=== PATIENT | male | born 1975 | race Caucasian/White ===

== ENCOUNTER 2020-07-25 14:22 | Inpatient (IN) ==
[2020-07-25] MEDS ORDERED: *HR* Dextrose 50 % in Water (Vial) 50 ML VIAL IVP PRN (18:54)
[2020-07-25] MEDS ORDERED: Dextrose Gel 15 GM/37.5 ML TUBE PO PRN ×2 (18:54)
[2020-07-25] MEDS ORDERED: D5% in Water 1,000 ML IVC PRN (18:54)
[2020-07-25] MEDS: Insulin LISPRO 300 UNITS/3 ML VIAL SQ SCH (21:45)
[2020-07-26] MEDS: *HR* Enoxaparin 40 MG/0.4 ML SYRINGE SQ SCH (05:23)
[2020-07-26 05:38] LABS: Basophils % 0.4 %; Eosinophils # 0.1 K/mcL (0.0-0.6); Eosinophils % 1.1 %; Hematocrit 45.4 % (37.5-50.1); Hemoglobin 14.4 g/dL (12.9-16.9); Immature Granulocytes % 0.5 % (0-4); Lymphocytes # 1.8 K/mcL (0.6-4.6); Lymphocytes % 21.5 %; Mean Corpuscular HGB Conc 31.7 g/dL (31.6-35.5); Mean Corpuscular Volume 91.5 fL (83.0-100.0); Mean Platelet Volume 10.3 fL (9.4-12.4); Monocytes # 0.8 K/mcL (0.0-1.3); Monocytes % 9.4 %; Neutrophils # 5.7 K/mcL (1.6-8.9); Platelet Count 140 K/mcL (140-400); Red Blood Count 4.96 M/mcL (4.19-5.50); Red Cell Distribution Width 13.1 % (11.5-14.5); Segmented Neutrophils % 67.1 %; White Blood Count 8.5 K/mcL (4.3-11.1)
[2020-07-26 05:55] LABS: Alanine Aminotransferase 32 Units/L (7-52); Albumin 3.6 g/dL (3.5-5.7); Albumin/Globulin Ratio 1.2 (1.1-2.2); Alkaline Phosphatase 87 Units/L (34-104); Aspartate Amino Transferase 17 Units/L (13-39); BUN/Creatinine Ratio 23 (6-26); Bilirubin,Total 0.7 mg/dL (0.3-1.0); Blood Urea Nitrogen 19 mg/dL (6-20); Carbon Dioxide 25 mEq/L (23-29); Chloride 104 mEq/L (98-107); Globulin 3.1 g/dL (2.4-3.5); Glucose 172 mg/dL (70-105); Magnesium 2.4 mg/dL (1.6-2.6); Osmolality,Calculated 290 (280-300); Potassium 4.3 mEq/L (3.5-5.1); Sodium 137 mEq/L (136-145); Total Protein 6.7 g/dL (6.4-8.9); eGFR For African Americans > 60 (> 60); eGFR For Non-African Americans > 60 (> 60)
[2020-07-26] MEDS: Aspirin Enteric Coated 81 MG Tablet PO SCH (09:35)
[2020-07-26] MEDS: (Empagliflozin [Jardiance] 10 MG) PO SCH (09:36)
[2020-07-26] MEDS: *HR* Metformin 500 MG TABLET PO SCH (09:36)
[2020-07-26] MEDS: *HR* Glimepiride 2 MG TABLET PO SCH (09:36)
[2020-07-26] MEDS: lisinopriL 10 MG TABLET PO SCH (09:36)
[2020-07-26] MEDS: Multivit/Ca/Min/Fe/FA 1 TAB TABLET PO SCH (09:36)
[2020-07-26] MEDS: Insulin LISPRO 300 UNITS/3 ML VIAL SQ SCH ×4 (09:36→22:15)
[2020-07-26] MEDS: Folic Acid 1 MG TABLET PO SCH (09:36)
[2020-07-26] MEDS: (Alogliptin Benzoate [Alogliptin] 25 MG) PO SCH (09:36)
[2020-07-27] MEDS: *HR* Enoxaparin 40 MG/0.4 ML SYRINGE SQ SCH (05:48)
[2020-07-27] MEDS: Insulin LISPRO 300 UNITS/3 ML VIAL SQ SCH ×3 (07:54→16:32)
[2020-07-27] MEDS: Folic Acid 1 MG TABLET PO SCH (07:59)
[2020-07-27] MEDS: lisinopriL 10 MG TABLET PO SCH (07:59)
[2020-07-27] MEDS: *HR* Glimepiride 2 MG TABLET PO SCH (07:59)
[2020-07-27] MEDS: *HR* Metformin 500 MG TABLET PO SCH (07:59)
[2020-07-27] MEDS: Aspirin Enteric Coated 81 MG Tablet PO SCH (07:59)
[2020-07-27] MEDS: Multivit/Ca/Min/Fe/FA 1 TAB TABLET PO SCH (07:59)
[2020-07-27] MEDS: (Alogliptin Benzoate [Alogliptin] 25 MG) PO SCH (08:01)
[2020-07-27] MEDS: (Empagliflozin [Jardiance] 10 MG) PO SCH (08:01)
[2020-07-27] MEDS: 0.9 % Sodium Chloride 1,000 ML IVC SCH ×2 (16:20→21:28)
[2020-07-28] MEDS: Insulin LISPRO 300 UNITS/3 ML VIAL SQ SCH ×5 (02:46→23:32)
[2020-07-28] MEDS: *HR* Enoxaparin 40 MG/0.4 ML SYRINGE SQ SCH (05:15)
[2020-07-28 05:45] LABS: Basophils % 0.4 %; Eosinophils # 0.2 K/mcL (0.0-0.6); Eosinophils % 1.9 %; Hematocrit 40.7 % (37.5-50.1); Hemoglobin 13.1 g/dL (12.9-16.9); Immature Granulocytes % 0.4 % (0-4); Lymphocytes # 1.9 K/mcL (0.6-4.6); Mean Corpuscular HGB Conc 32.2 g/dL (31.6-35.5); Mean Corpuscular Hemoglobin 29.3 pg (28.0-33.3); Mean Corpuscular Volume 91.1 fL (83.0-100.0); Mean Platelet Volume 10.7 fL (9.4-12.4); Monocytes # 0.7 K/mcL (0.0-1.3); Neutrophils # 5.6 K/mcL (1.6-8.9); Platelet Count 128 K/mcL (140-400); Red Blood Count 4.47 M/mcL (4.19-5.50); Red Cell Distribution Width 13.2 % (11.5-14.5); Segmented Neutrophils % 66.3 %; White Blood Count 8.4 K/mcL (4.3-11.1)
[2020-07-28 05:59] LABS: BUN/Creatinine Ratio 31 (6-26); Blood Urea Nitrogen 28 mg/dL (6-20); Calcium 8.1 mg/dL (8.6-10.3); Carbon Dioxide 22 mEq/L (23-29); Chloride 113 mEq/L (98-107); Glucose 81 mg/dL (70-105); Osmolality,Calculated 293 (280-300); Potassium 4.3 mEq/L (3.5-5.1); Sodium 139 mEq/L (136-145); eGFR For African Americans > 60 (> 60); eGFR For Non-African Americans > 60 (> 60)
[2020-07-28] MEDS: Multivit/Ca/Min/Fe/FA 1 TAB TABLET PO SCH (08:13)
[2020-07-28] MEDS: *HR* Glimepiride 2 MG TABLET PO SCH (08:13)
[2020-07-28] MEDS: Aspirin Enteric Coated 81 MG Tablet PO SCH (08:13)
[2020-07-28] MEDS: Cholecalciferol (D-3) 1,000 UNIT (25MCG) TABLET PO SCH (08:13)
[2020-07-28] MEDS: Folic Acid 1 MG TABLET PO SCH (08:13)
[2020-07-28] MEDS: (Alogliptin Benzoate [Alogliptin] 25 MG) PO SCH (08:14)
[2020-07-28] MEDS: (Empagliflozin [Jardiance] 10 MG) PO SCH (08:14)
[2020-07-28] MEDS: 0.9 % Sodium Chloride 1,000 ML IVC SCH ×2 (08:14→13:28)
[2020-07-29] MEDS: *HR* Enoxaparin 40 MG/0.4 ML SYRINGE SQ SCH (05:10)
[2020-07-29 07:57] LABS: BUN/Creatinine Ratio 22 (6-26); Blood Urea Nitrogen 16 mg/dL (6-20); Calcium 8.6 mg/dL (8.6-10.3); Carbon Dioxide 24 mEq/L (23-29); Chloride 112 mEq/L (98-107); Glucose 89 mg/dL (70-105); Osmolality,Calculated 293 (280-300); Potassium 4.5 mEq/L (3.5-5.1); Sodium 141 mEq/L (136-145); eGFR For African Americans > 60 (> 60); eGFR For Non-African Americans > 60 (> 60)
[2020-07-29] MEDS: Insulin LISPRO 300 UNITS/3 ML VIAL SQ SCH ×4 (09:17→21:31)
[2020-07-29] MEDS: Cholecalciferol (D-3) 1,000 UNIT (25MCG) TABLET PO SCH (09:23)
[2020-07-29] MEDS: Folic Acid 1 MG TABLET PO SCH (09:24)
[2020-07-29] MEDS: Aspirin Enteric Coated 81 MG Tablet PO SCH (09:24)
[2020-07-29] MEDS: *HR* Glimepiride 2 MG TABLET PO SCH (09:24)
[2020-07-29] MEDS: (Empagliflozin [Jardiance] 10 MG) PO SCH (09:24)
[2020-07-29] MEDS: Multivit/Ca/Min/Fe/FA 1 TAB TABLET PO SCH (09:24)
[2020-07-29] MEDS: (Alogliptin Benzoate [Alogliptin] 25 MG) PO SCH (13:44)
[2020-07-30] MEDS: *HR* Enoxaparin 40 MG/0.4 ML SYRINGE SQ SCH (05:58)
[2020-07-30] MEDS: Insulin LISPRO 300 UNITS/3 ML VIAL SQ SCH ×4 (08:14→19:49)
[2020-07-30] MEDS: Folic Acid 1 MG TABLET PO SCH (08:18)
[2020-07-30] MEDS: Aspirin Enteric Coated 81 MG Tablet PO SCH (08:18)
[2020-07-30] MEDS: Multivit/Ca/Min/Fe/FA 1 TAB TABLET PO SCH (08:18)
[2020-07-30] MEDS: (Empagliflozin [Jardiance] 10 MG) PO SCH (08:18)
[2020-07-30] MEDS: *HR* Glimepiride 2 MG TABLET PO SCH (08:18)
[2020-07-30] MEDS: Cholecalciferol (D-3) 1,000 UNIT (25MCG) TABLET PO SCH (08:18)
[2020-07-30] MEDS: (Alogliptin Benzoate [Alogliptin] 25 MG) PO SCH (08:19)
[2020-07-31] MEDS: *HR* Enoxaparin 40 MG/0.4 ML SYRINGE SQ SCH (04:46)
[2020-07-31] MEDS: Insulin LISPRO 300 UNITS/3 ML VIAL SQ SCH ×4 (08:04→19:50)
[2020-07-31] MEDS: Multivit/Ca/Min/Fe/FA 1 TAB TABLET PO SCH (08:56)
[2020-07-31] MEDS: Folic Acid 1 MG TABLET PO SCH (08:56)
[2020-07-31] MEDS: Cholecalciferol (D-3) 1,000 UNIT (25MCG) TABLET PO SCH (08:56)
[2020-07-31] MEDS: *HR* Glimepiride 2 MG TABLET PO SCH (08:56)
[2020-07-31] MEDS: Aspirin Enteric Coated 81 MG Tablet PO SCH (08:56)
[2020-07-31] MEDS: (Empagliflozin [Jardiance] 10 MG) PO SCH (08:58)
[2020-07-31] MEDS: (Alogliptin Benzoate [Alogliptin] 25 MG) PO SCH (08:59)
[2020-08-01] MEDS: *HR* Enoxaparin 40 MG/0.4 ML SYRINGE SQ SCH (07:10)
[2020-08-01] MEDS: Insulin LISPRO 300 UNITS/3 ML VIAL SQ SCH ×4 (09:08→20:43)
[2020-08-01] MEDS: (Empagliflozin [Jardiance] 10 MG) PO SCH (09:12)
[2020-08-01] MEDS: Folic Acid 1 MG TABLET PO SCH (09:12)
[2020-08-01] MEDS: (Alogliptin Benzoate [Alogliptin] 25 MG) PO SCH (09:12)
[2020-08-01] MEDS: *HR* Glimepiride 2 MG TABLET PO SCH (09:12)
[2020-08-01] MEDS: Multivit/Ca/Min/Fe/FA 1 TAB TABLET PO SCH (09:12)
[2020-08-01] MEDS: Aspirin Enteric Coated 81 MG Tablet PO SCH (09:12)
[2020-08-01] MEDS: Cholecalciferol (D-3) 1,000 UNIT (25MCG) TABLET PO SCH (09:12)
[2020-08-02] MEDS: *HR* Enoxaparin 40 MG/0.4 ML SYRINGE SQ SCH (05:45)
[2020-08-02] MEDS: Insulin LISPRO 300 UNITS/3 ML VIAL SQ SCH ×4 (08:49→21:46)
[2020-08-02] MEDS: Cholecalciferol (D-3) 1,000 UNIT (25MCG) TABLET PO SCH (08:49)
[2020-08-02] MEDS: *HR* Glimepiride 2 MG TABLET PO SCH (08:49)
[2020-08-02] MEDS: Aspirin Enteric Coated 81 MG Tablet PO SCH (08:49)
[2020-08-02] MEDS: (Alogliptin Benzoate [Alogliptin] 25 MG) PO SCH (08:50)
[2020-08-02] MEDS: Multivit/Ca/Min/Fe/FA 1 TAB TABLET PO SCH (08:50)
[2020-08-02] MEDS: Folic Acid 1 MG TABLET PO SCH (08:50)
[2020-08-02] MEDS: (Empagliflozin [Jardiance] 10 MG) PO SCH (08:50)
[2020-08-03] MEDS: *HR* Enoxaparin 40 MG/0.4 ML SYRINGE SQ SCH (05:25)
[2020-08-03] MEDS: Multivit/Ca/Min/Fe/FA 1 TAB TABLET PO SCH (08:35)
[2020-08-03] MEDS: Aspirin Enteric Coated 81 MG Tablet PO SCH (08:35)
[2020-08-03] MEDS: Folic Acid 1 MG TABLET PO SCH (08:35)
[2020-08-03] MEDS: *HR* Glimepiride 2 MG TABLET PO SCH (08:35)
[2020-08-03] MEDS: Cholecalciferol (D-3) 1,000 UNIT (25MCG) TABLET PO SCH (08:35)
[2020-08-03] MEDS: Insulin LISPRO 300 UNITS/3 ML VIAL SQ SCH ×4 (08:35→20:35)
[2020-08-03] MEDS: (Empagliflozin [Jardiance] 10 MG) PO SCH (08:36)
[2020-08-03] MEDS: (Alogliptin Benzoate [Alogliptin] 25 MG) PO SCH (08:36)
[2020-08-04] MEDS: *HR* Enoxaparin 40 MG/0.4 ML SYRINGE SQ SCH (05:34)
[2020-08-04] MEDS: Aspirin Enteric Coated 81 MG Tablet PO SCH (08:33)
[2020-08-04] MEDS: *HR* Glimepiride 2 MG TABLET PO SCH (08:33)
[2020-08-04] MEDS: Insulin LISPRO 300 UNITS/3 ML VIAL SQ SCH ×4 (08:33→20:44)
[2020-08-04] MEDS: (Alogliptin Benzoate [Alogliptin] 25 MG) PO SCH (08:33)
[2020-08-04] MEDS: Folic Acid 1 MG TABLET PO SCH (08:33)
[2020-08-04] MEDS: (Empagliflozin [Jardiance] 10 MG) PO SCH (08:33)
[2020-08-04] MEDS: Cholecalciferol (D-3) 1,000 UNIT (25MCG) TABLET PO SCH (08:33)
[2020-08-04] MEDS: Multivit/Ca/Min/Fe/FA 1 TAB TABLET PO SCH (08:33)
[2020-08-05] MEDS: *HR* Enoxaparin 40 MG/0.4 ML SYRINGE SQ SCH (04:01)
[2020-08-05] MEDS: Insulin LISPRO 300 UNITS/3 ML VIAL SQ SCH ×4 (08:00→21:07)
[2020-08-05] MEDS: Multivit/Ca/Min/Fe/FA 1 TAB TABLET PO SCH (08:08)
[2020-08-05] MEDS: Aspirin Enteric Coated 81 MG Tablet PO SCH (08:08)
[2020-08-05] MEDS: Folic Acid 1 MG TABLET PO SCH (08:08)
[2020-08-05] MEDS: *HR* Glimepiride 2 MG TABLET PO SCH (08:08)
[2020-08-05] MEDS: Cholecalciferol (D-3) 1,000 UNIT (25MCG) TABLET PO SCH (08:08)
[2020-08-05] MEDS: (Empagliflozin [Jardiance] 10 MG) PO SCH (08:10)
[2020-08-05] MEDS: (Alogliptin Benzoate [Alogliptin] 25 MG) PO SCH (08:10)
[2020-08-06] MEDS: *HR* Enoxaparin 40 MG/0.4 ML SYRINGE SQ SCH (05:45)
[2020-08-06] MEDS: Aspirin Enteric Coated 81 MG Tablet PO SCH (08:30)
[2020-08-06] MEDS: Multivit/Ca/Min/Fe/FA 1 TAB TABLET PO SCH (08:30)
[2020-08-06] MEDS: Cholecalciferol (D-3) 1,000 UNIT (25MCG) TABLET PO SCH (08:30)
[2020-08-06] MEDS: Folic Acid 1 MG TABLET PO SCH (08:30)
[2020-08-06] MEDS: (Empagliflozin [Jardiance] 10 MG) PO SCH (08:31)
[2020-08-06] MEDS: *HR* Glimepiride 2 MG TABLET PO SCH (08:31)
[2020-08-06] MEDS: Insulin LISPRO 300 UNITS/3 ML VIAL SQ SCH ×4 (08:31→20:30)
[2020-08-06] MEDS: (Alogliptin Benzoate [Alogliptin] 25 MG) PO SCH (08:31)
[2020-08-07] MEDS: *HR* Enoxaparin 40 MG/0.4 ML SYRINGE SQ SCH (05:02)
[2020-08-07 05:17] LABS: Hematocrit 43.7 % (37.5-50.1); Hemoglobin 13.9 g/dL (12.9-16.9); Mean Corpuscular HGB Conc 31.8 g/dL (31.6-35.5); Mean Corpuscular Hemoglobin 28.7 pg (28.0-33.3); Mean Corpuscular Volume 90.1 fL (83.0-100.0); Mean Platelet Volume 10.1 fL (9.4-12.4); Platelet Count 177 K/mcL (140-400); Red Blood Count 4.85 M/mcL (4.19-5.50); White Blood Count 7.5 K/mcL (4.3-11.1)
[2020-08-07 05:37] LABS: Alanine Aminotransferase 37 Units/L (7-52); Albumin 3.6 g/dL (3.5-5.7); Albumin/Globulin Ratio 1.4 (1.1-2.2); Alkaline Phosphatase 88 Units/L (34-104); Aspartate Amino Transferase 17 Units/L (13-39); BUN/Creatinine Ratio 17 (6-26); Bilirubin,Total 0.4 mg/dL (0.3-1.0); Blood Urea Nitrogen 14 mg/dL (6-20); Calcium 9.1 mg/dL (8.6-10.3); Carbon Dioxide 31 mEq/L (23-29); Chloride 106 mEq/L (98-107); Globulin 2.5 g/dL (2.4-3.5); Glucose 178 mg/dL (70-105); Magnesium 2.3 mg/dL (1.6-2.6); Osmolality,Calculated 297 (280-300); Potassium 4.4 mEq/L (3.5-5.1); Sodium 141 mEq/L (136-145); Total Protein 6.1 g/dL (6.4-8.9); eGFR For African Americans > 60 (> 60); eGFR For Non-African Americans > 60 (> 60)
[2020-08-07] MEDS: *HR* Glimepiride 2 MG TABLET PO SCH (08:27)
[2020-08-07] MEDS: Multivit/Ca/Min/Fe/FA 1 TAB TABLET PO SCH (08:27)
[2020-08-07] MEDS: Aspirin Enteric Coated 81 MG Tablet PO SCH (08:28)
[2020-08-07] MEDS: Cholecalciferol (D-3) 1,000 UNIT (25MCG) TABLET PO SCH (08:28)
[2020-08-07] MEDS: Folic Acid 1 MG TABLET PO SCH (08:28)
[2020-08-07] MEDS: (Empagliflozin [Jardiance] 10 MG) PO SCH (08:29)
[2020-08-07] MEDS: (Alogliptin Benzoate [Alogliptin] 25 MG) PO SCH (08:29)
[2020-08-07] MEDS: Insulin LISPRO 300 UNITS/3 ML VIAL SQ SCH ×4 (08:30→20:17)
[2020-08-08] MEDS: *HR* Enoxaparin 40 MG/0.4 ML SYRINGE SQ SCH (05:34)
[2020-08-08] MEDS: Insulin LISPRO 300 UNITS/3 ML VIAL SQ SCH ×4 (08:06→22:07)
[2020-08-08] MEDS: Aspirin Enteric Coated 81 MG Tablet PO SCH (08:23)
[2020-08-08] MEDS: Multivit/Ca/Min/Fe/FA 1 TAB TABLET PO SCH (08:23)
[2020-08-08] MEDS: *HR* Glimepiride 2 MG TABLET PO SCH (08:23)
[2020-08-08] MEDS: Cholecalciferol (D-3) 1,000 UNIT (25MCG) TABLET PO SCH (08:23)
[2020-08-08] MEDS: Folic Acid 1 MG TABLET PO SCH (08:23)
[2020-08-08] MEDS: (Alogliptin Benzoate [Alogliptin] 25 MG) PO SCH (08:23)
[2020-08-08] MEDS: (Empagliflozin [Jardiance] 10 MG) PO SCH (08:24)
[2020-08-09] MEDS: *HR* Enoxaparin 40 MG/0.4 ML SYRINGE SQ SCH (05:18)
[2020-08-09] MEDS: Folic Acid 1 MG TABLET PO SCH (13:16)
[2020-08-09] MEDS: Cholecalciferol (D-3) 1,000 UNIT (25MCG) TABLET PO SCH (13:16)
[2020-08-09] MEDS: Aspirin Enteric Coated 81 MG Tablet PO SCH (13:16)
[2020-08-09] MEDS: Multivit/Ca/Min/Fe/FA 1 TAB TABLET PO SCH (13:17)
[2020-08-09] MEDS: *HR* Glimepiride 2 MG TABLET PO SCH (13:17)
[2020-08-09] MEDS: (Empagliflozin [Jardiance] 10 MG) PO SCH (16:51)
[2020-08-09] MEDS: Insulin LISPRO 300 UNITS/3 ML VIAL SQ SCH ×4 (16:51→21:01)
[2020-08-09] MEDS: (Alogliptin Benzoate [Alogliptin] 25 MG) PO SCH (16:51)
[2020-08-10] MEDS: *HR* Enoxaparin 40 MG/0.4 ML SYRINGE SQ SCH (05:53)
[2020-08-10] MEDS: *HR* Glimepiride 2 MG TABLET PO SCH (08:52)
[2020-08-10] MEDS: Folic Acid 1 MG TABLET PO SCH (08:52)
[2020-08-10] MEDS: Multivit/Ca/Min/Fe/FA 1 TAB TABLET PO SCH (08:52)
[2020-08-10] MEDS: Aspirin Enteric Coated 81 MG Tablet PO SCH (08:52)
[2020-08-10] MEDS: Cholecalciferol (D-3) 1,000 UNIT (25MCG) TABLET PO SCH (08:52)
[2020-08-10] MEDS: (Alogliptin Benzoate [Alogliptin] 25 MG) PO SCH (08:53)
[2020-08-10] MEDS: Insulin LISPRO 300 UNITS/3 ML VIAL SQ SCH ×4 (08:53→22:19)
[2020-08-10] MEDS: (Empagliflozin [Jardiance] 10 MG) PO SCH (08:54)
[2020-08-11] MEDS: *HR* Enoxaparin 40 MG/0.4 ML SYRINGE SQ SCH (06:03)
[2020-08-11] MEDS: Cholecalciferol (D-3) 1,000 UNIT (25MCG) TABLET PO SCH (08:16)
[2020-08-11] MEDS: Insulin LISPRO 300 UNITS/3 ML VIAL SQ SCH ×4 (08:16→20:05)
[2020-08-11] MEDS: Aspirin Enteric Coated 81 MG Tablet PO SCH (08:16)
[2020-08-11] MEDS: (Empagliflozin [Jardiance] 10 MG) PO SCH (08:17)
[2020-08-11] MEDS: Multivit/Ca/Min/Fe/FA 1 TAB TABLET PO SCH (08:17)
[2020-08-11] MEDS: (Alogliptin Benzoate [Alogliptin] 25 MG) PO SCH (08:17)
[2020-08-11] MEDS: Folic Acid 1 MG TABLET PO SCH (08:17)
[2020-08-11] MEDS: *HR* Glimepiride 2 MG TABLET PO SCH (08:17)
[2020-08-12] MEDS: *HR* Enoxaparin 40 MG/0.4 ML SYRINGE SQ SCH (05:51)
[2020-08-12] MEDS: Cholecalciferol (D-3) 1,000 UNIT (25MCG) TABLET PO SCH (09:50)
[2020-08-12] MEDS: Multivit/Ca/Min/Fe/FA 1 TAB TABLET PO SCH (09:50)
[2020-08-12] MEDS: Aspirin Enteric Coated 81 MG Tablet PO SCH (09:50)
[2020-08-12] MEDS: Folic Acid 1 MG TABLET PO SCH (09:50)
[2020-08-12] MEDS: Insulin LISPRO 300 UNITS/3 ML VIAL SQ SCH ×4 (09:50→20:11)
[2020-08-12] MEDS: *HR* Glimepiride 2 MG TABLET PO SCH (09:50)
[2020-08-12] MEDS: (Empagliflozin [Jardiance] 10 MG) PO SCH (09:51)
[2020-08-12] MEDS: (Alogliptin Benzoate [Alogliptin] 25 MG) PO SCH (09:51)
[2020-08-13] MEDS: *HR* Enoxaparin 40 MG/0.4 ML SYRINGE SQ SCH (06:05)
[2020-08-13] MEDS: Insulin LISPRO 300 UNITS/3 ML VIAL SQ SCH ×4 (09:09→20:34)
[2020-08-13] MEDS: (Empagliflozin [Jardiance] 10 MG) PO SCH (09:48)
[2020-08-13] MEDS: (Alogliptin Benzoate [Alogliptin] 25 MG) PO SCH (09:48)
[2020-08-13] MEDS: *HR* Glimepiride 2 MG TABLET PO SCH (09:49)
[2020-08-13] MEDS: Aspirin Enteric Coated 81 MG Tablet PO SCH (09:49)
[2020-08-13] MEDS: Folic Acid 1 MG TABLET PO SCH (09:49)
[2020-08-13] MEDS: Cholecalciferol (D-3) 1,000 UNIT (25MCG) TABLET PO SCH (09:49)
[2020-08-13] MEDS: Multivit/Ca/Min/Fe/FA 1 TAB TABLET PO SCH (09:49)
[2020-08-14] MEDS: *HR* Enoxaparin 40 MG/0.4 ML SYRINGE SQ SCH (05:20)
[2020-08-14] MEDS: (Alogliptin Benzoate [Alogliptin] 25 MG) PO SCH (08:42)
[2020-08-14] MEDS: Cholecalciferol (D-3) 1,000 UNIT (25MCG) TABLET PO SCH (08:42)
[2020-08-14] MEDS: Insulin LISPRO 300 UNITS/3 ML VIAL SQ SCH ×4 (08:42→20:36)
[2020-08-14] MEDS: *HR* Glimepiride 2 MG TABLET PO SCH (08:42)
[2020-08-14] MEDS: Folic Acid 1 MG TABLET PO SCH (08:42)
[2020-08-14] MEDS: Multivit/Ca/Min/Fe/FA 1 TAB TABLET PO SCH (08:42)
[2020-08-14] MEDS: (Empagliflozin [Jardiance] 10 MG) PO SCH (08:42)
[2020-08-14] MEDS: Aspirin Enteric Coated 81 MG Tablet PO SCH (08:42)
[2020-08-15] MEDS: *HR* Enoxaparin 40 MG/0.4 ML SYRINGE SQ SCH (06:15)
[2020-08-15] MEDS: Insulin LISPRO 300 UNITS/3 ML VIAL SQ SCH ×4 (09:04→20:17)
[2020-08-15] MEDS: Aspirin Enteric Coated 81 MG Tablet PO SCH (09:07)
[2020-08-15] MEDS: (Alogliptin Benzoate [Alogliptin] 25 MG) PO SCH (09:07)
[2020-08-15] MEDS: Folic Acid 1 MG TABLET PO SCH (09:07)
[2020-08-15] MEDS: Multivit/Ca/Min/Fe/FA 1 TAB TABLET PO SCH (09:07)
[2020-08-15] MEDS: (Empagliflozin [Jardiance] 10 MG) PO SCH (09:07)
[2020-08-15] MEDS: Cholecalciferol (D-3) 1,000 UNIT (25MCG) TABLET PO SCH (09:07)
[2020-08-15] MEDS: *HR* Glimepiride 2 MG TABLET PO SCH (09:07)
[2020-08-16] MEDS: *HR* Enoxaparin 40 MG/0.4 ML SYRINGE SQ SCH (06:17)
[2020-08-16 06:29] LABS: Basophils % 0.3 %; Eosinophils # 0.1 K/mcL (0.0-0.6); Eosinophils % 1.9 %; Hematocrit 45.5 % (37.5-50.1); Hemoglobin 14.5 g/dL (12.9-16.9); Immature Granulocytes % 0.4 % (0-4); Lymphocytes # 2.1 K/mcL (0.6-4.6); Lymphocytes % 30.4 %; Mean Corpuscular HGB Conc 31.9 g/dL (31.6-35.5); Mean Corpuscular Hemoglobin 28.9 pg (28.0-33.3); Mean Corpuscular Volume 90.8 fL (83.0-100.0); Mean Platelet Volume 10.1 fL (9.4-12.4); Monocytes # 0.5 K/mcL (0.0-1.3); Monocytes % 6.8 %; Neutrophils # 4.2 K/mcL (1.6-8.9); Platelet Count 148 K/mcL (140-400); Red Blood Count 5.01 M/mcL (4.19-5.50); Red Cell Distribution Width 13.3 % (11.5-14.5); Segmented Neutrophils % 60.2 %
[2020-08-16 06:43] LABS: BUN/Creatinine Ratio 17 (6-26); Blood Urea Nitrogen 14 mg/dL (6-20); Calcium 9.5 mg/dL (8.6-10.3); Carbon Dioxide 27 mEq/L (23-29); Chloride 108 mEq/L (98-107); Glucose 94 mg/dL (70-105); Osmolality,Calculated 292 (280-300); Potassium 4.2 mEq/L (3.5-5.1); Sodium 141 mEq/L (136-145); eGFR For African Americans > 60 (> 60); eGFR For Non-African Americans > 60 (> 60)
[2020-08-16] MEDS: Insulin LISPRO 300 UNITS/3 ML VIAL SQ SCH ×4 (08:29→20:56)
[2020-08-16] MEDS: Cholecalciferol (D-3) 1,000 UNIT (25MCG) TABLET PO SCH (09:44)
[2020-08-16] MEDS: (Empagliflozin [Jardiance] 10 MG) PO SCH (09:44)
[2020-08-16] MEDS: Aspirin Enteric Coated 81 MG Tablet PO SCH (09:44)
[2020-08-16] MEDS: Folic Acid 1 MG TABLET PO SCH (09:44)
[2020-08-16] MEDS: Multivit/Ca/Min/Fe/FA 1 TAB TABLET PO SCH (09:44)
[2020-08-16] MEDS: *HR* Glimepiride 2 MG TABLET PO SCH (09:44)
[2020-08-16] MEDS: (Alogliptin Benzoate [Alogliptin] 25 MG) PO SCH (09:44)
[2020-08-17] MEDS: *HR* Enoxaparin 40 MG/0.4 ML SYRINGE SQ SCH (06:25)
[2020-08-17] MEDS: Insulin LISPRO 300 UNITS/3 ML VIAL SQ SCH ×3 (07:58→17:04)
[2020-08-17] MEDS: Folic Acid 1 MG TABLET PO SCH (09:01)
[2020-08-17] MEDS: Multivit/Ca/Min/Fe/FA 1 TAB TABLET PO SCH (09:01)
[2020-08-17] MEDS: *HR* Glimepiride 2 MG TABLET PO SCH (09:01)
[2020-08-17] MEDS: Aspirin Enteric Coated 81 MG Tablet PO SCH (09:01)
[2020-08-17] MEDS: Cholecalciferol (D-3) 1,000 UNIT (25MCG) TABLET PO SCH (09:01)
[2020-08-17] MEDS: (Empagliflozin [Jardiance] 10 MG) PO SCH (09:02)
[2020-08-17] MEDS: (Alogliptin Benzoate [Alogliptin] 25 MG) PO SCH (09:02)
[2020-08-18] MEDS: Insulin LISPRO 300 UNITS/3 ML VIAL SQ SCH ×5 (00:28→21:11)
[2020-08-18] MEDS: *HR* Enoxaparin 40 MG/0.4 ML SYRINGE SQ SCH (06:32)
[2020-08-18] MEDS: Aspirin Enteric Coated 81 MG Tablet PO SCH (08:40)
[2020-08-18] MEDS: Cholecalciferol (D-3) 1,000 UNIT (25MCG) TABLET PO SCH (08:40)
[2020-08-18] MEDS: Multivit/Ca/Min/Fe/FA 1 TAB TABLET PO SCH (08:40)
[2020-08-18] MEDS: Folic Acid 1 MG TABLET PO SCH (08:40)
[2020-08-18] MEDS: (Empagliflozin [Jardiance] 10 MG) PO SCH (08:42)
[2020-08-18] MEDS: (Alogliptin Benzoate [Alogliptin] 25 MG) PO SCH (08:42)
[2020-08-18] MEDS ORDERED: *HR* Glimepiride 2 MG TABLET PO SCH (09:00)
[2020-08-19] MEDS: *HR* Enoxaparin 40 MG/0.4 ML SYRINGE SQ SCH (05:43)
[2020-08-19] MEDS: Insulin LISPRO 300 UNITS/3 ML VIAL SQ SCH ×4 (07:57→20:35)
[2020-08-19] MEDS: (Empagliflozin [Jardiance] 10 MG) PO SCH (08:44)
[2020-08-19] MEDS: (Alogliptin Benzoate [Alogliptin] 25 MG) PO SCH (08:44)
[2020-08-19] MEDS: Aspirin Enteric Coated 81 MG Tablet PO SCH (08:53)
[2020-08-19] MEDS: Multivit/Ca/Min/Fe/FA 1 TAB TABLET PO SCH (08:53)
[2020-08-19] MEDS: Cholecalciferol (D-3) 1,000 UNIT (25MCG) TABLET PO SCH (08:53)
[2020-08-19] MEDS: Folic Acid 1 MG TABLET PO SCH (08:53)
[2020-08-20] MEDS: *HR* Enoxaparin 40 MG/0.4 ML SYRINGE SQ SCH (05:04)
[2020-08-20] MEDS: Insulin LISPRO 300 UNITS/3 ML VIAL SQ SCH ×4 (08:05→20:50)
[2020-08-20] MEDS: (Empagliflozin [Jardiance] 10 MG) PO SCH (09:15)
[2020-08-20] MEDS: (Alogliptin Benzoate [Alogliptin] 25 MG) PO SCH (09:15)
[2020-08-20] MEDS: Cholecalciferol (D-3) 1,000 UNIT (25MCG) TABLET PO SCH (09:42)
[2020-08-20] MEDS: Folic Acid 1 MG TABLET PO SCH (09:42)
[2020-08-20] MEDS: Multivit/Ca/Min/Fe/FA 1 TAB TABLET PO SCH (09:42)
[2020-08-20] MEDS: Aspirin Enteric Coated 81 MG Tablet PO SCH (09:43)
[2020-08-21] MEDS: *HR* Enoxaparin 40 MG/0.4 ML SYRINGE SQ SCH (05:24)
[2020-08-21] MEDS: Insulin LISPRO 300 UNITS/3 ML VIAL SQ SCH ×4 (07:52→20:27)
[2020-08-21] MEDS: (Alogliptin Benzoate [Alogliptin] 25 MG) PO SCH (09:04)
[2020-08-21] MEDS: (Empagliflozin [Jardiance] 10 MG) PO SCH (09:05)
[2020-08-21] MEDS: Cholecalciferol (D-3) 1,000 UNIT (25MCG) TABLET PO SCH (09:07)
[2020-08-21] MEDS: Multivit/Ca/Min/Fe/FA 1 TAB TABLET PO SCH (09:07)
[2020-08-21] MEDS: Folic Acid 1 MG TABLET PO SCH (09:08)
[2020-08-21] MEDS: Aspirin Enteric Coated 81 MG Tablet PO SCH (09:08)
[2020-08-22] MEDS: *HR* Enoxaparin 40 MG/0.4 ML SYRINGE SQ SCH (05:58)
[2020-08-22] MEDS: Insulin LISPRO 300 UNITS/3 ML VIAL SQ SCH ×4 (08:40→20:24)
[2020-08-22] MEDS: (Alogliptin Benzoate [Alogliptin] 25 MG) PO SCH (08:41)
[2020-08-22] MEDS: (Empagliflozin [Jardiance] 10 MG) PO SCH (08:41)
[2020-08-22] MEDS: Aspirin Enteric Coated 81 MG Tablet PO SCH (08:52)
[2020-08-22] MEDS: Multivit/Ca/Min/Fe/FA 1 TAB TABLET PO SCH (08:52)
[2020-08-22] MEDS: Folic Acid 1 MG TABLET PO SCH (08:52)
[2020-08-22] MEDS: Cholecalciferol (D-3) 1,000 UNIT (25MCG) TABLET PO SCH (08:52)
[2020-08-23] MEDS: *HR* Enoxaparin 40 MG/0.4 ML SYRINGE SQ SCH (05:05)
[2020-08-23 07:35] VITALS: BP 124/57
[2020-08-23] MEDS: Insulin LISPRO 300 UNITS/3 ML VIAL SQ SCH ×3 (08:09→17:17)
[2020-08-23] MEDS: Aspirin Enteric Coated 81 MG Tablet PO SCH (08:14)
[2020-08-23] MEDS: (Alogliptin Benzoate [Alogliptin] 25 MG) PO SCH (08:14)
[2020-08-23] MEDS: (Empagliflozin [Jardiance] 10 MG) PO SCH (08:14)
[2020-08-23] MEDS: Multivit/Ca/Min/Fe/FA 1 TAB TABLET PO SCH (08:14)
[2020-08-23] MEDS: Folic Acid 1 MG TABLET PO SCH (08:14)
[2020-08-23] MEDS: Cholecalciferol (D-3) 1,000 UNIT (25MCG) TABLET PO SCH (08:15)
[2020-08-23 15:20] LABS: Adenovirus Not Detected (Not Detect); Bordetella Pertussis Not Detected (Not Detect); Chlamydophila pneumoniae Not Detected (Not Detect); Coronavirus 229E Not Detected (Not Detect); Coronavirus HKU1 Not Detected (Not Detect); Coronavirus NL63 Not Detected (Not Detect); Coronavirus OC43 Not Detected (Not Detect); Human Metapneumovirus Not Detected (Not Detect); Human Rhinovirus/Enterovirus Not Detected (Not Detect); Influenza A Subtype 2009 H1 Not Detected (Not Detect); Influenza B Not Detected (Not Detect); Mycoplasma pneumoniae Not Detected (Not Detect); Parainfluenza Virus 1 Not Detected (Not Detect); Parainfluenza Virus 2 Not Detected (Not Detect); Parainfluenza Virus 3 Not Detected (Not Detect); Parainfluenza Virus 4 Not Detected (Not Detect); Respiratory Syncytial Virus Not Detected (Not Detect); SARS-CoV-2 Not Detected (Not Detect)
== END 2020-08-23 20:13 | DRG 57 ==
LOC: INPGRE 18:11
PROVIDERS: ADMIT Family Medicine; ATTEND Family Medicine